=== PATIENT | male | born 1975 | race Caucasian/White ===

== ENCOUNTER 2020-12-30 03:50 | Inpatient (IN) | payer OTHER ==
[~2020-12-30] VITALS: Ht 188 cm; Wt 123.4 kg
[2020-12-30 04:34] LABS: BASOPHIL 0.2 % (0-2); EOSINOPHIL 0 % (0-5); HCT 43.7 % (42.0-52.0); HGB 15.5 g/dl (13.2-18.0); MCH 31.3 pg (25.0-31.0); MCHC 35.5 g/dL (32.0-36.0); MCV 88.1 fL (78.0-100.0); MPV 11.4 fL (6.0-9.5); NEUTROPHIL 84.1 % (41-80); NRBC 0; PLT 113 K/uL (150-400); RBC 4.96 M/uL (4.70-6.00); WBC 4.4 K/uL (4.0-10.5)
[2020-12-30 05:11] LABS: ALBUMIN 3.5 g/dL (3.4-5.0); BILIRUBIN - TOTAL 1.2 mg/dL (0.2-1.0); BUN/CREAT RATIO (CALC) 15.1 RATIO; C-REACTIVE PROTEIN 10.9 mg/dL (<=0.90); CREATININE 0.93 mg/dL (0.67-1.17); GLOBULIN (CALCULATION) 3.3 g/dL; POTASSIUM 3.7 mmol/L (3.5-5.1); TOTAL PROTEIN 6.8 g/dL (6.4-8.2)
[2020-12-30] MEDS ORDERED: PROTONIX 40MG T40 MG PO (08:57)
[2020-12-31 05:05] LABS: BASOPHIL 0 % (0-2); EOSINOPHIL 0 % (0-5); HCT 40.9 % (42.0-52.0); HGB 14.4 g/dl (13.2-18.0); LYMPHOCYTE 7.9 % (15-48); MCH 31.8 pg (25.0-31.0); MCHC 35.2 g/dL (32.0-36.0); MCV 90.3 fL (78.0-100.0); MONOCYTE 9.6 % (0-12); MPV 11.5 fL (6.0-9.5); NEUTROPHIL 81.8 % (41-80); NRBC 0; PLT 116 K/uL (150-400); RBC 4.53 M/uL (4.70-6.00); RDW 12.1 % (11.5-14.0); WBC 4.2 K/uL (4.0-10.5)
[2020-12-31 06:00] LABS: BILIRUBIN - TOTAL 0.9 mg/dL (0.2-1.0); BUN/CREAT RATIO (CALC) 20.4 RATIO; CREATININE 0.93 mg/dL (0.67-1.17); GLOBULIN (CALCULATION) 3.6 g/dL; POTASSIUM 3.5 mmol/L (3.5-5.1); TOTAL PROTEIN 6.6 g/dL (6.4-8.2)
[2021-01-01 05:40] LABS: BASOPHIL 0.1 % (0-2); EOSINOPHIL 0 % (0-5); HCT 40.3 % (42.0-52.0); HGB 13.8 g/dl (13.2-18.0); MCH 31.2 pg (25.0-31.0); MCHC 34.2 g/dL (32.0-36.0); MONOCYTE 7.2 % (0-12); MPV 11.2 fL (6.0-9.5); NEUTROPHIL 85.8 % (41-80); NRBC 0; PLT 126 K/uL (150-400); RBC 4.43 M/uL (4.70-6.00)
[2021-01-01 05:44] LABS: WBC 7.5 K/uL (4.0-10.5)
[2021-01-01 05:57] LABS: ALBUMIN 2.8 g/dL (3.4-5.0); BILIRUBIN - TOTAL 0.7 mg/dL (0.2-1.0); BUN/CREAT RATIO (CALC) 22.2 RATIO; CREATININE 0.9 mg/dL (0.67-1.17); GLOBULIN (CALCULATION) 3.3 g/dL; POTASSIUM 4.1 mmol/L (3.5-5.1); TOTAL PROTEIN 6.1 g/dL (6.4-8.2)
[2021-01-02 06:27] LABS: BASOPHIL 0.1 % (0-2); EOSINOPHIL 0 % (0-5); HCT 38.3 % (42.0-52.0); HGB 13.1 g/dl (13.2-18.0); LYMPHOCYTE 5.9 % (15-48); MCH 31.1 pg (25.0-31.0); MCHC 34.2 g/dL (32.0-36.0); MONOCYTE 5.9 % (0-12); MPV 11.4 fL (6.0-9.5); NEUTROPHIL 86.9 % (41-80); NRBC 0; PLT 153 K/uL (150-400); RBC 4.21 M/uL (4.70-6.00); WBC 7.4 K/uL (4.0-10.5)
[2021-01-02 06:45] LABS: ALBUMIN 2.8 g/dL (3.4-5.0); BILIRUBIN - TOTAL 0.8 mg/dL (0.2-1.0); BUN/CREAT RATIO (CALC) 22.5 RATIO; CREATININE 0.8 mg/dL (0.67-1.17); GLOBULIN (CALCULATION) 3.1 g/dL; POTASSIUM 3.9 mmol/L (3.5-5.1); TOTAL PROTEIN 5.9 g/dL (6.4-8.2)
[2021-01-03 06:40] LABS: BASOPHIL 0.3 % (0-2); EOSINOPHIL 0.6 % (0-5); HCT 40.3 % (42.0-52.0); HGB 13.7 g/dl (13.2-18.0); LYMPHOCYTE 7.8 % (15-48); MCH 31.1 pg (25.0-31.0); MCV 91.6 fL (78.0-100.0); MONOCYTE 6.5 % (0-12); NEUTROPHIL 80.8 % (41-80); NRBC 0; PLT 143 K/uL (150-400); RDW 11.9 % (11.5-14.0); WBC 6.9 K/uL (4.0-10.5)
[2021-01-03 06:56] LABS: C-REACTIVE PROTEIN 2.6 mg/dL (<=0.90); MAGNESIUM 2.4 mg/dL (1.8-2.4); PHOSPHORUS 4.2 mg/dL (2.6-4.7)
[2021-01-05] MEDS ORDERED: DEXAMETHASONE 2M2 MG PO (12:30)
[2021-01-05] MEDS ORDERED: PROVENTIL HFA6.7 GM INH (12:30)
--- NOTE | 2021-01-07 12:35 | NUR ---
PT. D/C HOME WITH
== END 2021-01-05 14:28 | disposition home or self-care (01) | DRG 177 ==
LOC: FER 03:50 → FMS 05:51
PROVIDERS: Emergency Medicine; Family Medicine; Nurse Practitioner; ADMIT Internal Medicine
PROC: 5A0945A Assistance with Respiratory Ventilation, 24-96 Consecutive Hours, High Flow/Velocity Cannula (ICD-10-PCS; principal; 2020-12-30)
PROC: 8E0ZXY6 Isolation (ICD-10-PCS; 2020-12-30)
PROC: XW033E5 Introduction of Remdesivir Anti-infective into Peripheral Vein, Percutaneous Approach, New Technology Group 5 (ICD-10-PCS; 2020-12-30)
PROC: XW0DXM6 Introduction of Baricitinib into Mouth and Pharynx, External Approach, New Technology Group 6 (ICD-10-PCS; 2020-12-30)
DX: U07.1 COVID-19 (principal); J12.82 Pneumonia due to coronavirus disease 2019; J96.01 Acute respiratory failure with hypoxia; I10 Essential (primary) hypertension
CPT/HCPCS: 36415; 36600; 71275; 80053; 82728; 82803; 83605; 83615; 83735; 83880; 84100; 84145; 84484; 85025; 85379; 86140; 87040; 93005; 94010; 94640; 94760; 94762; C9399; J1650; J2405; J2930; J7030; J7050; J8540; Q9967; U0002